=== PATIENT | female | born 1995 | race Caucasian/White ===

== ENCOUNTER 2017-01-09 19:02 | Emergency (ER) | payer BC ==
[2017-01-09 19:20] VITALS: BP 132/92
--- NOTE | 2017-01-09 19:47 | UC ---
Cardiac HPI - HPI Summary HPI Summary: Patient complaining of CP and numbness to face and arms, reports takeing 20 mg of Adderall at 11 this morning, started to have palpatations. SHe became nervous and started to hyperventilate. state she recently had an increse in her dose. - History of Current Complaint Chief Complaint: UCChestPain Stated Complaint: CHEST PAIN,NUMBNESS IN FACE,CHEST HANDS Time Seen by Provider: 01/09/17 19:06 Hx Obtained From: Patient Onset/Duration: Sudden Onset, Lasting Days Timing: Constant Initial Severity: Severe Current Severity: Severe Chest Pain Location: Mid Sternal Character: Pressure/Squeezing Aggravating: Medications Alleviating: Rest Associated Signs & Symptoms: Positive: Anxiety, Numbness, Tingling - Risk Factors Pulmonary Embolism Risk Factors: Negative - Allergy/Home Medications Allergies/Adverse Reactions: Allergies Allergy/AdvReac Type Severity Reaction Status Date / Time No Known Allergies Allergy Verified 11/24/13 13:42 Home Medications: Home Medications Amphetamine-Dextroamphetamine [Adderall 10 mg-] 01/09/17 [History] PMH/Surg Hx/FS Hx/Imm Hx Previously Healthy: Yes Endocrine History Of: Denies: Diabetes, Thyroid Disease Cardiovascular History Of: Denies: Cardiac Disorders, Hypertension Respiratory History Of: Denies: COPD, Asthma GI/ History Of: Denies: Ulcer - Surgical History Surgical History: None - Family History Known Family History: Negative: Cardiac Disease, Hypertension - Social History Alcohol Use: Daily Alcohol Amount: 3 drinks at one time Substance Use Type: None Smoking Status (MU): Never Smoked Tobacco Review of Systems Constitutional: Negative Skin: Negative Eyes: Negative ENT: Negative Respiratory: Negative Cardiovascular: Palpitations, Chest Pain Gastrointestinal: Negative Genitourinary: Negative Motor: Negative Neurovascular: Negative Musculoskeletal: Negative Neurological: Negative Psychological: Anxious All Other Systems Reviewed And Are Negative: Yes Physical Exam Triage Information Reviewed: Yes Appearance: Well-Nourished, Ill-Appearing, Pain Distress Vital Signs: Initial Vital Signs Pulse 91 01/09/17 19:15 Resp 18 01/09/17 19:15 BP 132/92 01/09/17 19:15 Pulse Ox 100 01/09/17 19:15 Vital Signs Reviewed: Yes Eye Exam: Normal Eyes: Positive: Conjunctiva Clear ENT Exam: Normal ENT: Positive: Hearing grossly normal, Pharynx normal, TMs normal Dental Exam: Normal Neck exam: Normal Neck: Positive: Supple, Nontender, No Lymphadenopathy Respiratory Exam: Normal Respiratory: Positive: Chest non-tender, Lungs clear, Normal breath sounds Cardiovascular Exam: Normal Cardiovascular: Positive: RRR, No Murmur, Pulses Normal Abdominal Exam: Normal Abdomen Description: Positive: Nontender, No Organomegaly, Soft Bowel Sounds: Positive: Present Musculoskeletal Exam: Normal Musculoskeletal: Positive: Strength Intact, ROM Intact, No Edema Neurological Exam: Normal Neurological: Positive: Alert, Muscle Tone Normal Psychological: Positive: Normal Response To Family, Other: - patient was anxious until she found out that her EKG was normal. Skin Exam: Normal - Assessment/Plan Course Of Treatment: hx obtained, exam performed, EKG was NSR, HR 91, Patient was relieved, after 5 minutes denied any CP or numbness, Talked with patient aobut use of the medication ans recommend calling the prescribed to lower the odse back to a tolerable dose. Patient in agreement, upon close of encounter states she is feeling much better. - Differential Diagnoses - Chest Pain Differential Diagnosis/HQI/PQRI: Acute [place], Pulmonary Embolism - Differential Diagnoses - Hypertension Differential Diagnosis/HQI PQRI: Hypertension - Clinical Impression Provider Diagnoses: ANxiety. adverse reaction to medication Discharge - Discharge Plan Condition: Stable Disposition: HOME Patient Education Materials: Amphetamine/Dextroamphetamine (By mouth) Additional Instructions: I recommend that you call your primary provider and discuss the medication and reactions you are having. Follow up with any worsening symptoms.
== END 2017-01-09 19:51 | disposition home or self-care (01) ==
LOC: UCEAST 19:02
DX: T43.625A Adverse effect of amphetamines, initial encounter (principal); F41.9 Anxiety disorder, unspecified
CPT/HCPCS: 93005; 99211; G0463